=== PATIENT | female | born 1975 | race Two or more races ===

== ENCOUNTER 2020-12-16 19:15 | Emergency (ER) | payer OTHER ==
[~2020-12-16] VITALS: Ht 165.1 cm; Wt 63.5 kg
[2020-12-16] MEDS ORDERED: EZETIMIBE10 MG (19:38)
[2020-12-16] MEDS ORDERED: ORPHENADRINE C100 MG (19:38)
[2020-12-16] MEDS ORDERED: NAPROXEN500 MG (19:38)
[2020-12-16] MEDS ORDERED: ATACAND16 MG (19:39)
[2020-12-16] MEDS ORDERED: CENTRUM ADULTS1 EACH (19:39)
[2020-12-16] MEDS ORDERED: MEDI-MECLIZINE25 MG PO (22:42)
== END 2020-12-16 22:49 | disposition home or self-care (01) ==
LOC: ER 19:15
DX: I16.0 Hypertensive urgency (principal); I10 Essential (primary) hypertension; R42 Dizziness and giddiness; R06.02 Shortness of breath; R11.0 Nausea; R20.2 Paresthesia of skin; Z03.818 Encounter for observation for suspected exposure to other biological agents ruled out

== ENCOUNTER 2024-01-26 10:22 | Outpatient (CLI) | payer OTHER ==
[~2024-01-26 10:22] MED LIST: ATACAND16 MG; CENTRUM ADULTS1 EACH; EZETIMIBE10 MG; MEDI-MECLIZINE25 MG PO; NAPROXEN500 MG; ORPHENADRINE C100 MG
== END 2024-01-26 10:29 | disposition home or self-care (01) ==
LOC: MAMO-SONO 10:22
PROVIDERS: ATTEND Internal Medicine
DX: N64.4 Mastodynia (principal); N63 Unspecified lump in breast

== ENCOUNTER → 2024-01-26 12:17 | Outpatient (CLI) | payer OTHER | END | disposition home or self-care (01) | LOC: NUCLEAR 12:17 | PROVIDERS: ATTEND Internal Medicine | DX: M85.80 Other specified disorders of bone density and structure, unspecified site (principal); M81.0 Age-related osteoporosis without current pathological fracture ==

== ENCOUNTER 2024-01-26 13:15 | Outpatient (CLI) | payer OTHER ==
[2024-01-26 14:08] LABS: HEMATOCRIT 37.9 % (36.0-45.00); HEMOGLOBIN 13.1 g/dL (12.0-15.00); MEAN CELL VOLUME 87.6 fL (80.00-100.00); MEAN CORPUSCULAR HEMOGLOBIN 30.2 pg (27.00-32.0); MEAN CORPUSCULAR HGB CONC 34.4 g/dl (32.0-36.0); PLATELET COUNT 243 K/uL (150-450); RED BLOOD COUNT 4.33 M/uL (4.00-6.00); RED CELL DISTRIBUTION WIDTH 13.3 % (11.5-14.5)
[2024-01-26 14:09] LABS: PH,URINE 5.5 (5.0-8.0); URINE APPEARANCE Clear; URINE BILIRRUBIN Negative (NEGATIVE); URINE BLOOD Negative; URINE COLOR Yellow; URINE GLUCOSE Negative (NEGATIVE); URINE KETONE Negative (NEGATIVE); URINE LEUKOCYTE Negative; URINE NITRATE Negative; URINE PROTEIN Negative (NEGATIVE); URINE UROBILINOGEN 0.2 E.U./dl
[2024-01-26 14:13] LABS: URINE BACTERIA 60.4 uL (0.0-1933); URINE EPITHELIAL CELLS 4.7 uL (0.0-38.8); URINE RBC 5.4 uL (0.0-20.8); URINE WBC 2.6 uL (0.0-23.2)
[2024-01-26 14:59] LABS: BILIRUBIN TOTAL 0.53 mg/dL (0.3-1.2); BILIRUBIN,CONJUGATED 0.14 mg/dL (0.0-0.2); BILIRUBIN,UNCONJUGATED 0.39 mg/dL (0.0-0.6); CALCIUM 9.4 mg/dL (8.5-10.1); CHOL HDL RATIO 3.9 (0-5.0); CREATININE SERUM 0.71 mg/dL (0.55-1.02); GFR 87.13; POTASSIUM 4.11 mEq/L (3.5-5.1); TOTAL PROTEIN 7.6 gm/dL (6.4-8.2); TSH 1.03 uIU/mL (0.358-3.74)
== END 2024-01-26 13:21 | disposition home or self-care (01) ==
LOC: LAB 13:15
PROVIDERS: ATTEND Internal Medicine
DX: R73.09 Other abnormal glucose (principal); R73.01 Impaired fasting glucose; E78.2 Mixed hyperlipidemia; E78.00 Pure hypercholesterolemia, unspecified; E87.8 Other disorders of electrolyte and fluid balance, not elsewhere classified; R74.01 Elevation of levels of liver transaminase levels; K76.9 Liver disease, unspecified; D50.8 Other iron deficiency anemias; N39.0 Urinary tract infection, site not specified; E55.9 Vitamin D deficiency, unspecified; Z83.49 Family history of other endocrine, nutritional and metabolic diseases; R97.8 Other abnormal tumor markers; Z12.11 Encounter for screening for malignant neoplasm of colon